=== PATIENT | female | born 1970 | race Two or more races ===

== ENCOUNTER 2024-08-28 12:20 | Observation (INO) | payer MEDICAID, SELFPAY ==
--- NOTE | 2024-08-27 11:36 | EKG_ITS ---
[facility] Test Date: 2024-08-27 Pat Name: SZUANNE BARAJAS Department: Room: - Gender: Female Deck Hand: HARRY : 1970 Requested By: Sebastián Carter Order Number: [id number] Reading MD: Sebastián Carter Measurements Intervals [place] Rate: 63 P: 42 MD: 142 QRS: 43 QRSD: 81 T: 64 QT: 339 QTc: 347 Interpretive Statements SINUS RHYTHM NONSPECIFIC T-WAVE ABNORMALITY Compared to ECG 12/02/2023 08:50:26 No significant changes /store/S0/[id number].pdf
[2024-08-27 11:43] VITALS: BMI 26.2
--- NOTE | 2024-08-27 12:21 | XR_ITS ---
Examination: Left knee 4 views TECHNIQUE: AP oblique lateral axial left knee 4 views Exam date and time: 03/27/2024 1256 hours Comparison December 24, 2023 INDICATIONS: Knee pain years FINDINGS: Severe narrowing medial joint space left knee Advanced osteoarthritis patellofemoral joint Small knee effusion No fracture IMPRESSION: Advanced osteoarthritis as above
[2024-08-27 12:29] LABS: Basophils # (Auto) 0.1 Thou/mm3 (0.0-0.2); Basophils % (Auto) 1 % (0-2.5); Eosinophils # (Auto) 0.2 Thou/mm3 (0.0-0.5); Eosinophils % (Auto) 2 % (0-10); Hematocrit 43.5 % (36.0-46.0); Immature Granulocytes % (Auto) 0 % (0-0); Immature Granulocytes Auto 0.02 Thou/mm3 (0.00-0.00); Lymphocytes # (Auto) 2.4 Thou/mm3 (1.0-4.8); Lymphocytes % (Auto) 37 % (10-50); Mean Corpuscular HGB Conc 34.5 g/dl (31.0-37.0); Mean Corpuscular Hemoglobin 29.8 pg (25.0-35.0); Mean Corpuscular Volume 86 fL (80-100); Monocytes # (Auto) 0.4 Thou/mm3 (0.0-0.8); Monocytes % (Auto) 7 % (0-12); Neutrophils # (Auto) 3.5 Thou/mm3 (1.8-7.7); Neutrophils % (Auto) 53 % (37-80); Nucleated Red Blood Cell % 0 /100 WBC (0); Platelet Count 286 Thou/mm3 (140-440); RDW Standard Deviation 39.4 fL (36.4-46.3); Red Blood Count 5.04 Miln/mm3 (4.00-5.20); White Blood Count 6.5 Thou/mm3 (3.6-11.0)
[2024-08-27 12:46] LABS: Partial Thromboplastin Time 24.1 Seconds (22.0-36.0); Prothrombin Time 10.8 Seconds (9.0-12.2)
[2024-08-27 12:53] LABS: Alanine Aminotransferase 20 U/L (10-49); Albumin, Serum 5.4 gm/dL (3.5-5.0); Albumin/Globulin Ratio 2.3 (1.2-2.2); Alkaline Phosphatase 100 U/L (46-116); Anion Gap 7 (7-16); Aspartate Amino Transferase 19 U/L (0-34); BUN/Creatinine Ratio 14 Ratio (12-20); Bilirubin,Total 0.7 mg/dL (0.3-1.2); Blood Urea Nitrogen 10 mg/dL (9-23); Calcium 10.3 mg/dL (8.3-10.6); Calcium (Corrected) 10.3 mg/dL (8.5-10.1); Chloride 102 mMol/L (98-107); Creatinine (Component) 0.7 mg/dL (0.6-1.3); Estimated Creatinine Clearance 84.5 mL/min (>60); Globulin 2.4 gm/dL (2.3-3.5); Glucose 90 mg/dL (74-106); Osmolality,Calculated 272 (275-295); Sodium 137 mMol/L (136-145); Total Protein 7.8 gm/dL (5.7-8.2); eGFR > 60 See Note
--- NOTE | 2024-08-27 14:16 | ESHP_ITS ---
RE: SUZANNE BARAJAS : 1970 DATE OF ADMISSION: 08/28/2024 REASON FOR ADMISSION: The patient came to my office on 08/27/2024 for detailed preop history and physical examination. HISTORY OF PRESENT COMPLAINT: The patient has got significant pain in the left knee joint. Pain is quite bad. This is going on for the last few years, but the last few months is extremely painful. The patient graded intensity of pain to be 8-9/10. Activities of daily living and quality of life is affected. The patient walks with a limp. There is some deformity as well. X-ray confirms severe osteoarthritic changes. PAST MEDICAL HISTORY: The patient has a history of high blood pressure. No history of diabetes mellitus, asthma, seizure, chest pain, myocardial infarction, or bleeding disorder. PAST SURGICAL HISTORY: Left knee arthroscopy done. DRUG HISTORY: The patient is taking, 1. Atorvastatin. 2. Lisinopril. 3. Magnesium. 4. Meloxicam. 5. Tramadol. ALLERGIES: NIL KNOWN. FAMILY HISTORY AND SOCIAL HISTORY: The patient denies smoking, drinking, and works in the field. PHYSICAL EXAMINATION: GENERAL: Rather normal built person. VITAL SIGNS: Pulse 82 per minute, blood pressure is 136/84. NECK: Soft, supple, no masses felt. Trachea is centrally replaced. CARDIOVASCULAR SYSTEM: First and second heart sounds normal. No murmur heard. LUNGS: Bilateral vesicular breath sounds. CHEST: Clear. ABDOMEN: Soft, no masses felt. Bowel sounds are present. BREASTS: Not indicate in this case. RECTAL: The patient is advised to see the family physician for rectal examination. EXTREMITIES: Left knee examination reveals significant genu varum deformity. Range of motion is 0 to 115 degrees of flexion. Patellofemoral femoral crepitus is present. The patient walks with a limp. Alban's test is positive. DIAGNOSTIC DATA: MRI scan in 2023 revealed significant degenerative joint disease changes. X-ray of the left knee this year reveals severe osteoarthritic changes. ASSESSMENT AND PLAN: Since the patient is symptomatic, therefore, left total knee replacement was discussed and advised. Risks with anesthesia was explained and that includes, but not limited to reaction to anesthetic agents, cardiac arrest, rarely it might be fatal. Risk with operation includes infection and if that happens, the patient may need further surgical procedure. Other risks include delayed healing, wound dehiscence, etc. No guarantee is given regarding outcome of the procedure and/or relief of symptoms. Indeed, full cooperation with the physical activity is needed for good outcome. Possibility of blood transfusion was discussed. Risks with blood transfusion was discussed in detail. After discussing, the patient wants to proceed with surgery. The patient was also cleared for surgical procedure by her primary care physician, Amalia Mcduffie. Surgery is booked for 08/28/2024 in [facility]. DT: 12:13:47 TT: 14:14:00 Ref: [id number] - TID: [id number]
[2024-08-28] VITALS (18 sets, daily range): BP systolic 92–136; BP diastolic 54–86; PULSE 61–89; RESP 14–98; TEMP 36.1–36.8; O2SAT 95–100; BMI 26.0
[2024-08-28] MEDS: RINGERS LACTATED 1000 ML 1,000 ML 20 ML IV (06:42)
--- NOTE | 2024-08-28 07:27 | CHAP ---
Patient expressed gratitude for prayer before her procedure.
--- NOTE | 2024-08-28 10:00 | SUR.PHASEI ---
1000: Pt. AAOx4, vitals stable, breathing unlabored, no complaint of pain or nausea, dressing to left knee CDI, no active bleed noted, pt. able to wiggle bilateral feet, bilateral dorsalis pedis pulses strong and regular, cap refill to bilateral feet less than 3 seconds, report received from MD Stewart and Miky LÓPEZ.
--- NOTE | 2024-08-28 10:13 | XR_ITS ---
Examination: Knee, right , 3 views Technique: Knee AP, lateral, oblique 3 views Date and time of exam: August 28, 2024 1028 hours INDICATIONS: Postop knee replacement FINDINGS: Moderate osteopenia Total left knee arthroplasty. Satisfactory alignment No fracture IMPRESSION: Total left knee arthroplasty with satisfactory alignment
--- NOTE | 2024-08-28 10:14 | ESOP_ITS ---
Date of Procedure 08/28/24 Pre Op Diagnosis Severe DJD left knee joint Post Op Diagnosis Same with genu varum deformity Procedure Left total knee replacement. Femur size 6 narrow Tibial baseplate size D Polyethylene size 13 mm Patella size 26 mm Findings Patient has significant genu varum deformity. The medial femoral condyle was completely denuded of cartilage. Medial tibial plateau had the same finding. In the lateral compartment there was grade III chondromalacia. Patella had significant osteophytes along the present all across. Same was the scenario with femur and tibia. Overall patient has severe osteoarthritic changes with genu varum deformity Procedure Description The patient was given a [spinal] anesthesia. Once satisfactory anesthesia was achieved a tourniquet was placed on left upper thigh. Intravenous antibiotics was given at the time of anesthesia. The patient was thoroughly prepped and draped. After using Esmarch the tourniquet pressure was raised to 350 mmHg. A skin incision was made 2 inches proximal to the upper pole of patella going as far down as up to the medial aspect of the tibial tuberosity. The skin was raised as a flap on the site. The bleeding vessels were electrocoagulated as and when encountered. The quadriceps tendon, medial border of the patella and the patellar tendon along the medial aspect of the tibial tuberosity was incised and reflected. The patellar tendon was reflected as much as needed to jason the patella. The soft tissue from the upper medial border of the tibia was reflected to correct her genu varum deformity. The knee joint was flexed. The anterior cruciate ligament, medial and lateral meniscus were excised. Next para drill hole was made to the inferior surface of the femur. Following that a swab was placed. A 4 ?? of abduction was already put into it. Following that a cutting block for the inferior cut of the femur was placed and nicely secured with the pins. The swat was removed. The inferior cut of the femur was made and after that the cutting block was removed. Following that a sizer was placed. A decision was made to use size [6] femur implant. 2 drill holes each in 3?? of external rotation were made. The sizer was removed. Size [6] cutting block was placed. Following that anterior, posterior, anterior chamfer and posterior chamfer cuts were made. The cutting block was removed. The knee joint was extended and a 10 mm trial plastic was placed and the intended level of the tibial cut was marked. The knee joint was flexed. With the help of double-pronged the tibia was displaced anteriorly. An extramedullary jig for the cutting block placement of the tibia was placed. The mechanical axis of the zig was parallel to the mechanical axis of the tibia. Following that the tibial cutting block was placed at the desired level and was secured nicely with the help of pins. Following that the tibial cut was made. In this case was posterior cruciate ligament was saved. The cutting block was removed. The spacer was placed and a decision was made to use size [12] polyethylene. The sizing of the tibial baseplate was done and the decision was made to use size [D] tibial baseplate. Following that size [6] trial femur implant was placed in lateralized position and size [D] tibial tibial baseplate along with size [12] plastic was placed in knee joint was flexed and extended quite a few times and tibial baseplate was allowed to sit wherever it wanted to. The markings were made for the tibial baseplate. However it looked a little loose therefore decision was made to use size 13 mm plastic. The trial was done with the same and that final decision was made to use 13 mm polyethylene 2 drill holes were made for the inferior surface of the femur trial implant. The trial implant was removed and tibial baseplate was placed again with the help of pins. The collar was placed and superior hole was drilled. Following that a fin cut was made. The patella was reamed with [26] mm diameter reamer. [12] mm thickness was left. A collar was placed and 3 drill holes were made. All the trial implant was placed and patellar tracking was checked and found to be good. Lateral release was done at this point. The wound was irrigated with antibiotic solution every 4-5 minutes. Now the power lavage antibiotic solution was used. The knee joint was flexed. The bone were made dry. The cement was mixed. With the help of cement the tibial baseplate was mounted. The excess cement was removed. The femur implant was placed and trial plastic was placed and knee joint was extended. Patella was also mounted with the help of cementing. Excess cement was removed. Osteophytes from the patella was removed at this time. Once the cement was set the tourniquet pressure was released. The bleeding vessels were electrocoagulated. The trial plastic was removed and 13 mm ultra high molecular weight polyethylene was placed. The instability of the knee joint tested on the operating table and was very stable Closure . The quadriceps tendon, medial border of the patella and patellar tendon was closed with the help of 1-0 Vicryl in an interrupted fashion. The subcutaneous tissue was closed with 2-0 Vicryl in an interrupted fashion. The skin was closed with ronny. The wound was cleaned with hydrogen proximal solution and a sterile dressing was applied. Patient tolerated procedure very well. Estimated blood loss [50] mL. Prognosis in this case is good. This was taken to the recovery room in good condition. Anesthesia spinal and other Pathology / specimen None Estimated Blood Loss 50 Surgeon Sebastián Clayton MD Surgical Staff Operation Date: 08/28/24 07:30 Case Staff Anesthesiologist: Rc Stewart RNmainframe software developer: Andreea Hawley
--- NOTE | 2024-08-28 12:15 | SUR.PHASEI ---
1215: Pt. AAOx4, vitals stable, breathing unlabored, no complaint of pain or nausea, dressing to left knee CDI, no active bleed noted, pt. able to wiggle bilateral feet, bilateral dorsalis pedis pulses strong and regular, cap refill to bilateral feet less than 3 seconds, Pt. tolerated sips of water and bites of food well. Gave report to Merry LÓPEZ prior to transfer to room 381. Family made aware of transfer to room, pt. transferred with all personal belongings.
--- NOTE | 2024-08-28 13:05 | PC.NURSE ---
PT ARRIVAL TO UNIT 1220, VITALS BP:118/71 O2:98 ON RA, HR:90 BILATERAL PEDAL PULSES NOTED DRESSING ON LEFT LEG CLEAN & DRY SCD ON RIGHT LEG IN PLACE, PT STATES SHE IS COMFORTABLE, NO PAIN AT THIS TIME. BED LOW LOCKED CALL LIGHT WITHIN REACH
[2024-08-28] MEDS: ceFAZolin/D5W 1 GM IVPB 1 GM/50 ML BAG IV ×2 (16:24→23:46)
--- NOTE | 2024-08-28 18:55 | PD.ANESPROG ---
Documentation for date of: 08/28/24 ANESTHESIA NOTE: Patient had spinal anesthesia with intrathecal Duramorph and L femoral nerve block and MAC for L TKA this morning. She did well intra-op and in PACU. I just saw her briefly in 381 around 18:50 and she was alert and calm, seated up in bed, NAD, her visitors at bedside. I've entered spinal orders for 24 hrs. Rc Stewart MD Anesthesia Progress Note Progress Note Most recent Vital Signs: Last Vital Signs Temp 98 F 08/28/24 16:00 Pulse 71 08/28/24 16:00 Resp 16 08/28/24 16:00 BP 118/72 08/28/24 16:00 Pulse Ox 96 08/28/24 16:00 O2 Del Method Room Air 08/28/24 16:00
[2024-08-28] MEDS: Artificial Tears 225 DROP/15 ML BTL BOTH EYES (21:58)
[2024-08-28] MEDS: MORPHINE SULF INJ 10 MG/ML VIAL 4 MG IV (23:00)
[2024-08-29] VITALS: BP 115/66; PULSE 82; RESP 18; TEMP 37.2; O2SAT 96
[2024-08-29 04:00] VITALS: BP 112/59; PULSE 71; RESP 19; TEMP 36.1; O2SAT 96
[2024-08-29 05:47] LABS: Basophils % (Auto) 0 % (0-2.5); Eosinophils % (Auto) 0 % (0-10); Hematocrit 33.7 % (36.0-46.0); Hemoglobin 11.5 g/dL (12.0-16.0); Immature Granulocytes % (Auto) 0 % (0-0); Immature Granulocytes Auto 0.03 Thou/mm3 (0.00-0.00); Lymphocytes # (Auto) 1.6 Thou/mm3 (1.0-4.8); Lymphocytes % (Auto) 14 % (10-50); Mean Corpuscular HGB Conc 34.1 g/dl (31.0-37.0); Mean Corpuscular Hemoglobin 29.9 pg (25.0-35.0); Mean Corpuscular Volume 88 fL (80-100); Monocytes # (Auto) 0.7 Thou/mm3 (0.0-0.8); Monocytes % (Auto) 6 % (0-12); Neutrophils # (Auto) 9.1 Thou/mm3 (1.8-7.7); Neutrophils % (Auto) 80 % (37-80); Nucleated Red Blood Cell % 0 /100 WBC (0); Platelet Count 221 Thou/mm3 (140-440); RDW Standard Deviation 39.4 fL (36.4-46.3); Red Blood Count 3.85 Miln/mm3 (4.00-5.20); White Blood Count 11.4 Thou/mm3 (3.6-11.0)
[2024-08-29 08:00] VITALS: BP 109/70; PULSE 79; RESP 16; TEMP 36.4; O2SAT 98
[2024-08-29] MEDS: HYDROcodone/APAP 5/325 TABLET 1 TAB PO (08:59)
[2024-08-29] MEDS: Artificial Tears 225 DROP/15 ML BTL BOTH EYES (09:53)
--- NOTE | 2024-08-29 09:59 | PC.NURSE ---
pts wheeler was dc'd at this time, per Dr. Gallagher once pt is able to void on her own she will be dc'd home
[2024-08-29 11:29] VITALS: BMI 11.0
[2024-08-29 12:00] VITALS: BP 118/66; PULSE 75; RESP 17; TEMP 36.1; O2SAT 98
--- NOTE | 2024-08-29 12:29 | PC.SS ---
CHEF TEACHER met with pt and daughter and education intern explained that walker referral's are made but that she can get walker during the week. CHEF TEACHER explained to daughter and mom that they will need to follow up with about o/p clinic doing DME referral for walker.
== END 2024-08-29 12:38 | disposition home or self-care (01) ==
LOC: S3SX 08-29 10:00 → S2EX 08-31 06:48 → S3SX 08-31 06:49
PROVIDERS: Anesthesiology; Admitting Provider Orthopaedic Surgery; PCP Nurse Practitioner Primary Care; Referring Provider Orthopaedic Surgery; Visit Provider Orthopaedic Surgery
PROC: (CPT 27447; principal; 2024-08-28 07:30)
DX: M17.12 Unilateral primary osteoarthritis, left knee (principal); M21.162 Varus deformity, not elsewhere classified, left knee; M21.161 Varus deformity, not elsewhere classified, right knee
CPT/HCPCS: 27447; 36415; 73562; 73564; 80053; 85025; 85610; 85730; 86850; 86900; 86901; 86923; 87081; 93005; 96365; 97162; A4217; C1713; C1776; G0378; J0689; J0690; J1100; J1200; J1580; J2250; J2270; J2274; J2371; J2704; J2795; J3010; J3490; J7120; P9045; A9270

== ENCOUNTER 2025-02-25 07:25 | Day surgery (SDC) | payer MEDICAID, SELFPAY ==
[2025-02-24 14:22] VITALS: BMI 26.4
[2025-02-25] VITALS (14 sets, daily range): BP systolic 123–160; BP diastolic 73–99; PULSE 59–74; RESP 10–18; TEMP 36.6; O2SAT 96–100; BMI 25.1
[2025-02-25] MEDS: RINGERS LACTATED 1000 ML 1,000 ML 60 ML IV (09:00)
[2025-02-25] MEDS: fentaNYL CIT INJ 50 mCg/ML AMP 2ML (ASD USE ONLY) IVP (09:12)
[2025-02-25] MEDS: DiphenhydrAMINE INJ 50 MG/ML VIAL 25 MG IVP (09:22)
[2025-02-25] MEDS: MIDAZOLAM INJ 1 MG/ML VIAL 2 ML (ASD USE ONLY) 2 MG IVP (09:36)
== END 2025-02-25 10:23 | disposition home or self-care (01) ==
PROVIDERS: PCP Physician Assistant; Referring Provider Specialist; Visit Provider Specialist
PROC: 0DBE8ZX Excision of Large Intestine, Via Natural or Artificial Opening Endoscopic, Diagnostic (ICD-10-PCS; CPT 45380; principal; 2025-02-25 08:30)
DX: K60.2 Anal fissure, unspecified (principal); K64.2 Third degree hemorrhoids
CPT/HCPCS: 45330; 81025; J1200; J2250; J3010; J7120

== ENCOUNTER → 2025-04-06 | Outpatient (CLI) | payer MEDICAID, SELFPAY ==
--- NOTE | 2025-04-06 | XR_ITS ---
Examination: Abdomen AP single view Technique: AP portable supine abdomen, single view Exam date and time: April 06, 2025 0917 hours INDICATIONS: Incomplete colonoscopy one month ago. FINDINGS: Large amounts of stool throughout the colon IMPRESSION: Large amounts of stool throughout the colon
== END | disposition home or self-care (01) ==
LOC: CDIM 08:19
PROVIDERS: PCP Nurse Practitioner Primary Care; Referring Provider Specialist; Visit Provider Specialist
DX: K59.01 Slow transit constipation (principal)
CPT/HCPCS: 74018

== ENCOUNTER → 2025-05-26 | Outpatient (CLI) | payer MEDICAID, SELFPAY ==
--- NOTE | 2025-05-26 09:00 | XR_ITS ---
Examination: Gastrografin enema with KUB Fluoroscopy 17 spot fluoroscopic films of the colon Date and time: May 26, 2025 0942 hours INDICATIONS: History incomplete colonoscopy March 2024. TECHNIQUE AND FINDINGS: Technology Strategist abdomen film shows nonobstructive bowel gas pattern. The colon is filled in retrograde manner to the cecum with reflux into terminal ileum Mild stool is present throughout the colon No constricting colonic lesion No diverticulitis. No rectal or other ulcerations IMPRESSION: Limited study No constricting colonic lesion Fluoroscopy 0.25 minutes 17 spot fluoroscopic films
== END | disposition home or self-care (01) ==
PROVIDERS: Referring Provider Specialist; Visit Provider Specialist
DX: K59.01 Slow transit constipation (principal)
CPT/HCPCS: 74280

== ENCOUNTER → 2025-06-30 | Outpatient (CLI) | payer MEDICAID, SELFPAY ==
--- NOTE | 2025-06-30 16:45 | XR_ITS ---
Examination: Screening digital mammography, bilateral Computer aided detection 3-D breast Tomosynthesis, bilateral Date and time of exam: June 30, 2025, 1707 hours, compared to mammograms dating to February 02, 2017 Indication: Screening Technique: Nonmagnified MLO, CC views of the breasts to been obtained, reconstructed from 3-D Tomosynthesis images. R2 computer aided detection program utilized for evaluation of suspicious masses and/or abnormal calcifications. 3-D Tomosynthesis images obtained. Findings: The breasts are heterogeneously dense, which may obscure small masses Benign calcifications. No interval suspicious masses Impression: BI-RADS category II: Benign Findings. Recommend 1 year follow-up mammogram.
== END | disposition home or self-care (01) ==
PROVIDERS: PCP Nurse Practitioner Primary Care; Referring Provider Obstetrics & Gynecology; Visit Provider Obstetrics & Gynecology
DX: Z12.31 Encounter for screening mammogram for malignant neoplasm of breast (principal); R92.323 Mammographic fibroglandular density, bilateral breasts; R92.1 Mammographic calcification found on diagnostic imaging of breast
CPT/HCPCS: 77063; 77067